=== PATIENT | female | born 1995 | race Caucasian/White ===

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

== ENCOUNTER 2017-10-11 20:07 | Emergency (ER) | payer OTHER ==
[2017-10-11] MEDS ORDERED: cefTRIAXone VIAL(*) 250 MG VIAL IM ONE (22:21)
[2017-10-11] MEDS ORDERED: Lidocaine 1% MPF* 2 ML VIAL INJ ONE (22:21)
[2017-10-11] MEDS ORDERED: Azithromycin TAB* 250 MG PO ONE (22:22)
--- NOTE | 2017-10-11 22:24 | UC ---
Complaint Female HPI - HPI Summary HPI Summary: Patient here complaining of one week of lower abdominal pain and greenish vaginal discharge and vaginal irritation. She has had some intermittent spotting and is concerned about . She has unprotected sex with her boyfriend. Has depo-provera for contraception. Also reports 1 episode of left breast discharge. No fever. - History Of Current Complaint Chief Complaint: UCGU Stated Complaint: ABD PAIN Time Seen by Provider: 10/11/17 21:42 Hx Obtained From: Patient Hx Last Menstrual Period: depo Onset/Duration: Gradual Onset, Lasting Days, Still Present Timing: Constant Severity Initially: Moderate Severity Currently: Moderate Pain Intensity: 6 Pain Scale Used: 0-10 Numeric Character: Sharp Aggravating Factor(s): Nothing Alleviating Factor(s): Nothing Associated Signs And Symptoms: Positive: Vaginal Discharge. Negative: Fever, Back Pain, Nausea, Vomiting(# Of Episodes =) - Allergies/Home Medications Allergies/Adverse Reactions: Allergies Allergy/AdvReac Type Severity Reaction Status Date / Time No Known Allergies Allergy Verified 10/11/17 20:36 PMH/Surg Hx/FS Hx/Imm Hx Previously Healthy: Yes - Surgical History Surgical History: None - Family History Known Family History: Positive: Hypertension, Other - Social History Alcohol Use: None Substance Use Type: None Smoking Status (MU): Never Smoked Tobacco Review of Systems Constitutional: Negative Skin: Negative Respiratory: Negative Cardiovascular: Negative Gastrointestinal: Abdominal Pain Genitourinary: Vaginal/Penile Burning, Vaginal/Penile Discharge All Other Systems Reviewed And Are Negative: Yes Physical Exam Triage Information Reviewed: Yes Appearance: Well-Appearing, No Pain Distress, Well-Nourished Vital Signs: Initial Vital Signs Temp 98.0 F 10/11/17 20:29 Pulse 73 10/11/17 20:29 Resp 16 10/11/17 20:29 BP 101/71 10/11/17 20:29 Pulse Ox 99 10/11/17 20:29 Vital Signs Reviewed: Yes Eyes: Positive: Conjunctiva Clear ENT: Positive: Hearing grossly normal Neck: Positive: Supple Respiratory: Positive: No respiratory distress, No accessory muscle use Cardiovascular: Positive: Pulses Normal Abdomen Description: Positive: Nontender, Soft Musculoskeletal: Positive: No Edema Neurological: Positive: Alert Psychological: Positive: Age Appropriate Behavior Skin: Negative: rashes Diagnostics - Laboratory Diagnostic Studies Completed/Ordered: URINE DIP 1.025, 2+ BLOOD, 1+ LEUKS. URINE HCG NEGATIVE Complaint Female Dx - Course Course Of Treatment: Patient declines pelvic exam. I advised patient that my evaluation would be incomplete without a pelvic exam. She continues to decline and is requesting treatment based on symptoms. Given patient is high risk will go ahead and cover for gonorrhea and chlamydia with Rocephin and azithromycin. Patient performed her own swab for vaginitis which we will also send for testing. Given patient's complaint of vaginal discharge will treat empirically with Flagyl. Patient will follow up with her PCP for further evaluation if her breast discharge. - Differential Dx/Diagnosis Provider Diagnoses: 1. HIGH RISK SEXUAL ACTIVITY - STD PROPHYLAXIS. 2. VAGINITIS Discharge - Sign-Out/Discharge Documenting (check all that apply): Discharge - Discharge Plan Condition: Stable Disposition: HOME Prescriptions: metroNIDAZOLE [Flagyl 500 MG TAB] 500 mg PO BID #14 tab Patient Education Materials: Sexually Transmitted Diseases (ED), Vaginitis (ED) Referrals: Paloma Miranda MD [Primary Care Provider] - 2 Weeks Additional Instructions: Follow-up with your primary care doctor for further evaluation of your breast discharge. I would recommend getting an ultrasound. Urine has been sent for testing for gonorrhea and chlamydia. We will call you with any abnormal results. You have been treated prophylactically today with Rocephin and azithromycin. Swab sent for vaginitis. We'll treat empirically with Flagyl twice daily for 7 days. Take for the full course. - Billing Disposition and Condition Condition: STABLE Disposition: HOME
--- NOTE | 2017-10-13 13:13 | UC ---
- Progress Note Progress Note: Hospital lab called urgent care. Patient is positive for chlamydia. 1 g azithromycin sent electronically to her pharmacy. Patient is being advised no sexual contact until she is rechecked in 2 weeks. Discharge - Sign-Out/Discharge Documenting (check all that apply): Post-Discharge Follow Up - Discharge Plan Condition: Stable Disposition: HOME Prescriptions: Azithromycin TAB* [Zithromax TAB (Z-ARACELI) 250 mg #6 tabs] 1,000 mg PO ONCE #4 tab metroNIDAZOLE [Flagyl 500 MG TAB] 500 mg PO BID #14 tab Patient Education Materials: Sexually Transmitted Diseases (ED), Vaginitis (ED) Referrals: Paloma Miranda MD [Primary Care Provider] - 2 Weeks Additional Instructions: Follow-up with your primary care doctor for further evaluation of your breast discharge. I would recommend getting an ultrasound. Urine has been sent for testing for gonorrhea and chlamydia. We will call you with any abnormal results. You have been treated prophylactically today with Rocephin and azithromycin. Swab sent for vaginitis. We'll treat empirically with Flagyl twice daily for 7 days. Take for the full course. - Billing Disposition and Condition Condition: STABLE Disposition: HOME
== END 2017-10-11 22:47 | disposition home or self-care (01) ==
LOC: UCEAST 20:07
DX: N76.0 Acute vaginitis (principal); Z32.02 Encounter for pregnancy test, result negative; Z11.3 Encounter for screening for infections with a predominantly sexual mode of transmission
CPT/HCPCS: 81003; 84702; 87086; 87480; 87491; 87510; 87591; 87660; 96372; 99212; A9270-GY; G0463; J0696

== ENCOUNTER 2019-03-28 22:00 | Emergency (ER) | payer OTHER ==
--- NOTE | 2019-03-28 22:30 | ED ---
- HPI Summary HPI Summary: This pt is a 23 Y/O F presenting to [facility] accompanied by her boyfriend with a CC of upper abdominal pain, nausea, and anormal vaginal discharge that followed a fall up 4 stairs of her house at 2130. She states that she is 3 months and has upper abdominal pain and nausea. She states that she has not had any vaginal bleeding. She denies any fevers, chills, vomiting, and SOB. Her GPA is 2, 0, 1. She currently rated the abdominal pain an 8/10 in severity. She has no alleviating factors. She has a FHx of diabetes and blood pressure. She also stated that she has her first HARDWARE DESIGN ENGINEER appointment on the . - History of Current Complaint Chief Complaint: EDOBProblems Stated Complaint: FELL DOWN THE STAIRS 3 MONTHS PER PT Time Seen by Provider: 03/28/19 22:15 Hx Obtained From: Patient Chief Complaint: Vaginal Discharge - following a fall up 4 stairs at her house Onset/Duration: Started Hours Ago - 1, Still Present Timing: Constant Severity: Severe Current Severity: Severe Pain Intensity: 8 Location of Pain: Suprapubic Character: None Aggravating Factors: Other: - falling up her stairs Alleviating Factors: Nothing Associated Signs and Symptoms: Positive: Negative - chills, and SOB., Nausea, Vaginal Bleeding or Discharge - discharge, denies vaginal bleeding. Negative: Fever, Vomiting - Assessment Hx Now: Yes - 3 months - Allergies/Home Medications Allergies/Adverse Reactions: Allergies Allergy/AdvReac Type Severity Reaction Status Date / Time No Known Allergies Allergy Verified 10/11/17 20:36 PMH/Surg Hx/FS Hx/Imm Hx Previously Healthy: Yes Endocrine/Hematology History: Denies: Hx Diabetes, Hx Thyroid Disease Cardiovascular History: Denies: Hx Hypertension Respiratory History: Denies: Hx Asthma, Hx Chronic Obstructive Pulmonary Disease (COPD) GI History: Denies: Hx Ulcer - Surgical History Surgical History: None - Immunization History Immunizations Up to Date: Yes Infectious Disease History: No Infectious Disease History: Denies: Hx Hepatitis, Hx Human Immunodeficiency Virus (HIV), Traveled Outside the [place] in Last 30 Days - Family History Known Family History: Positive: Hypertension, Diabetes - Social History Occupation: Employed Part-time Lives: Alone Alcohol Use: None Hx Substance Use: No Substance Use Type: Reports: None Hx Tobacco Use: No Smoking Status (MU): Never Smoked Tobacco Household Exposure: No Review of Systems Negative: Fever, Chills Negative: Shortness Of Breath Positive: Abdominal Pain - suprapubic, Nausea. Negative: Vomiting Genitourinary: Negative - Vaginal bleeding Positive: discharge - vaginal discharge All Other Systems Reviewed And Are Negative: Yes Physical Exam - Summary Physical Exam Summary: Appearance: Well-appearing, Well-nourished, lying in bed comfortably Skin: Warm, dry, no obvious rash Eyes: sclera anicteric, no conjunctival pallor ENT: mucous membranes moist, pharynx appears normal Neck: Supple, nontender Respiratory: Clear to auscultation, no signs of respiratory distress Cardiovascular: Normal S1, S2. No murmurs. Normal distal pulses in tibial and radial bilaterally. Abdomen: Soft, nontender, normal active bowel sounds present Musculoskeletal: Normal, Strength/ROM Intact Neurological: A&Ox3, awake and alert, mentation is normal, speech is fluent and appropriate Psychiatric: affect is normal, does not appear anxious or depressed - Physical Exam Triage Information Reviewed: Yes Vital Signs Reviewed: Yes Procedures - Sedation Patient Received Moderate/Deep Sedation with Procedure: No Diagnostics - Vital Signs Vital Signs Temp Pulse Resp BP Pulse Ox 03/28/19 22:03 98 F 78 16 133/82 95 - Laboratory Lab Statement: Any lab studies that have been ordered have been reviewed, and results considered in the medical decision making process. - Ultrasound US Ultrasound Interpretation Completed By: Radiologist Summary of Ultrasound Findings: Single living intrauterine fetus with an ultrasound age of 13 weeks 2 days which is concordant with the clinical age. No sonographic findings to correlate with patient's symptomatology. ED physician has reviewed this report. 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 She states that she is 3 months and has suprapubic abdominal pain and nausea. She states that she has not had any vaginal bleeding. Her GPA is 2, 0, 1. She has a normal PE. Single living intrauterine fetus with an ultrasound age of 13 weeks 2 days which is concordant with the clinical age. No sonographic findings to correlate with patient's symptomatology. She has no abnrmal lab values. She will be discharged home with a Dx of a blunt abdominal injury. - Diagnoses Provider Diagnoses: Blunt injury of abdomen Discharge ED - Sign-Out/Discharge Documenting (check all that apply): Patient Departure - discharge - Discharge Plan Condition: Good Disposition: HOME Patient Education Materials: Blunt Abdominal Injury (ED) Referrals: Paloma Miranda MD [Primary Care Provider] - Additional Instructions: The ultrasound showed the baby is doing well and there is no sign that your fall caused any injury. If your symptoms persist through the weekend I would recommend contacting your OB for followup. - Billing Disposition and Condition Condition: GOOD Disposition: Home - Attestation Statements Document Initiated by Leeanne: Yes Documenting Scribe: Pa Edward Provider For Whom Leeanne is Documenting (Include Credential): Ilan Hodges MD Scribe Attestation: Pa Burns, scribed for Ilan Hodges MD on 03/29/19 at 1818. Scribe Documentation Reviewed: Yes Provider Attestation: The documentation as recorded by the Pa ayoub accurately reflects the service I personally performed and the decisions made by Ilan loya MD Status of Scribe Document: Viewed
[2019-03-29 00:41] VITALS: BP 112/66
== END 2019-03-29 00:39 | disposition home or self-care (01) ==
LOC: ED 22:00
DX: O9A.211 Injury, poisoning and certain other consequences of external causes complicating pregnancy, first trimester (principal); S39.91XA Unspecified injury of abdomen, initial encounter; R11.0 Nausea; N89.8 Other specified noninflammatory disorders of vagina; Z3A.13 13 weeks gestation of pregnancy; W10.2XXA Fall (on)(from) incline, initial encounter; Y92.009 Unspecified place in unspecified non-institutional (private) residence as the place of occurrence of the external cause
CPT/HCPCS: 76815; 99282